=== PATIENT | male | born 2000 | race Caucasian/White ===

== ENCOUNTER 2024-11-19 15:45 | Emergency (ER) | payer OTHER ==
[2024-11-19 15:52] VITALS: BP 141/92; PULSE 88; RESP 20; TEMP 97.5; BMI 27.2
[2024-11-19 17:45] LABS: ABSOLUTE IMMATURE GRANULOCYTES 0.01 x10^3/uL (0.0-0.031); BASOPHILS # 0.01 x10^3/uL (0.01-0.08); EOSINOPHIL % 0.8 % (0.8-7.0); EOSINOPHILS # 0.04 x10^3/uL (0.04-0.54); HEMOGLOBIN 14.7 g/dL (13.7-17.5); MCHC 35.9 g/dl (32.3-36.5); MEAN CELL VOLUME 89.7 fl (79.0-92.2); MEAN PLT VOLUME 8.7 fl (9.4-12.4); MONOCYTE # 0.47 x10^3/uL (0.30-0.82); PLATELET COUNT 225 x10^3/uL (163-337); RDW 12.1 % (11.9-15.3)
[2024-11-19 17:47] LABS: ALBUMIN 4.8 g/dl (3.4-5.0); ALK PHOS 57 U/L (45-117); ANION GAP 7 mmol/L (4-13); BILIRUBIN,TOTAL 1.5 mg/dl (0.2-1); CHLORIDE 103 mmol/L (98-107); CO2 30 mmol/L (21-32); CREATININE 0.9 mg/dl (0.6-1.3); GLUCOSE,RANDOM 82 mg/dl (74-106); SGOT/AST 32 U/L (15-37); SGPT/ALT 42 U/L (7-52); SODIUM 140 mmol/L (136-145); TOT PROT 7.1 g/dl (6.4-8.2)
[2024-11-19 20:53] LABS: HCV DIAGNOSTIC IN-HOUSE W/RFLX NON-REACTIVE (NONREACTIVE); HIV INTERPRETATION NEGATIVE (NEGATIVE)
== END 2024-11-19 18:56 | disposition home or self-care (01) ==
LOC: FER 15:45
DX: R10.31 Right lower quadrant pain (principal)
CPT/HCPCS: 36415; 74177-TC; 80053; 85025; 86803; 87389; 99285-25; Q9967